=== PATIENT | female | born 1940 | race Two or more races ===

== ENCOUNTER 2025-02-26 11:32 | Emergency (ER) | payer OTHER ==
[~2025-02-26] VITALS: Ht 160 cm; Wt 68.0 kg
[2025-02-26] MEDS ORDERED: ZETIA10 MG (11:49)
[2025-02-26] MEDS ORDERED: METFORMIN HCL500 M3 (11:49)
[2025-02-26] MEDS ORDERED: LOSARTAN POTASS50 MG PO (11:49)
[2025-02-26] MEDS ORDERED: FAMOTIDINE/PF 20 MG/2 ML VIAL ONE (12:27)
[2025-02-26] MEDS ORDERED: 0.9 % SODIUM CHLORIDE 1,000 ML IV ONE (12:30)
[2025-02-26] MEDS ORDERED: FAMOtidine 10 MG/ML (4ML VIAL) IV ONE (12:30)
[2025-02-26 13:22] LABS: URINE APPEARANCE Cloudy; URINE BILIRRUBIN Negative (NEGATIVE); URINE BLOOD Negative; URINE COLOR Yellow; URINE GLUCOSE Negative (NEGATIVE); URINE KETONE Negative (NEGATIVE); URINE LEUKOCYTE Negative; URINE NITRATE Negative; URINE PROTEIN Negative (NEGATIVE); URINE UROBILINOGEN 0.2 E.U./dl
[2025-02-26 13:44] LABS: URINE BACTERIA 1102.7 uL (0.0-1933); URINE EPITHELIAL CELLS 45.4 uL (0.0-38.8); URINE RBC 8.3 uL (0.0-20.8)
[2025-02-26 14:27] LABS: ALBUMIN 3.4 gm/dL (3.4-5.0); BILIRUBIN TOTAL 0.24 mg/dL (0.3-1.2); CREATININE SERUM 0.7 mg/dL (0.55-1.02); GFR 79.72; GLOBULINA 4.6 G/DL (2.4-3.5); POTASSIUM 4.52 mEq/L (3.5-5.1)
[2025-02-26 14:38] LABS: INR 1.1; PROTHROMBIN TIME 11.9 SECONDS (9.0-11.5)
[2025-02-26 15:01] LABS: HEMATOCRIT 44.7 % (36.0-45.00); HEMOGLOBIN 14.9 g/dL (12.0-15.00); MEAN CORPUSCULAR HEMOGLOBIN 28.6 pg (27.00-32.0); MEAN CORPUSCULAR HGB CONC 33.3 g/dl (32.0-36.0); PLATELET COUNT 239 K/uL (150-450); RED BLOOD COUNT 5.19 M/uL (4.00-6.00); RED CELL DISTRIBUTION WIDTH 13.8 % (11.5-14.5)
[2025-02-26] MEDS ORDERED: METRONIDAZOLE500 MG PO (16:27)
[2025-02-26] MEDS ORDERED: CIPRO500 MG PO (16:27)
[2025-02-26] MEDS ORDERED: PROTONIX40 MG PO (16:27)
== END 2025-02-26 16:47 | disposition home or self-care (01) ==
LOC: ER 11:32
PROVIDERS: General Practice
DX: K57.90 Diverticulosis of intestine, part unspecified, without perforation or abscess without bleeding (principal); R10.9 Unspecified abdominal pain; I10 Essential (primary) hypertension; E11.9 Type 2 diabetes mellitus without complications; Z79.84 Long term (current) use of oral hypoglycemic drugs
CPT/HCPCS: 36415; 74177; 96365; 96366; 99284; J3490; J7030; Q9965